=== PATIENT | male | born 1990 | race Caucasian/White ===

== ENCOUNTER 2017-03-29 02:03 | Emergency (ER) | payer OTHER ==
[~2017-03-29] VITALS: Ht 185.4 cm; Wt 68.7 kg
[2017-03-29 02:12] VITALS: TEMP 37; Ht 185.4 cm; Wt 68.7 kg
[2017-03-29] MEDS ORDERED: IBUPROFEN 800 MG TAB PO STA (02:23)
--- NOTE | 2017-03-29 02:30 | EMERGENCY ROOM VISIT NOTE ---
History Report prepared by Lioribzulma: Bossman Gore Under the Supervision of: Dr. Sea Nails D.O. First contact with patient: 02:15 Chief Complaint: KNEEPAIN Stated Complaint: PAIN IN RIGHT KNEE CAP-CAN BARELY WALK History of Present Illness The patient is a 27 year old male who presents to the Emergency Room with complaints of severe right knee pain starting about 9 hours ago and worsening about 2 hours ago. The patient was playing basketball. He went up to get a rebound when his right leg bent inward and his right knee hit the pavement. He heard a pop when the knee hit the floor. He has been applying ice with some relief. He has worsening pain with movement. He describes the pain to be radiating up to the buttocks and down his lower leg. The patient does not have any medical problems. Source of History: patient Onset: about 9 hours ago Position: knee (right) Symptom Intensity: severe Timing: worsening Modifying Factors (Worsening): movement Modifying Factors (Relieving): ice (with some relief) Review of Systems See HPI for pertinent positives and negatives. A total of six systems were reviewed and were otherwise negative. Past Medical & Surgical Medical Problems: (1) Bronchitis (2) Bronchitis (3) Fracture of fifth metacarpal bone (4) Fracture of fifth metacarpal bone of right hand (5) Fracture of fourth metacarpal bone of right hand Family History Patient reports no known family medical history. Social History Smoking Status: Former Smoker Alcohol Use: occasionally Marital Status: Housing Status: lives with family Occupation Status: employed Current/Historical Medications No Active Prescriptions or Reported Meds Allergies Coded Allergies: No Known Allergies (Unverified , 03/29/17) Physical Exam Vital Signs Date Time Temp Pulse Resp B/P Pulse Ox O2 Delivery O2 Flow Rate FiO2 03/29/17 02:12 37.0 78 16 109/63 98 Room Air Physical Exam GENERAL: Awake, alert, well-appearing, in no distress HENT: Normocephalic, atraumatic. Oropharynx unremarkable. EYES: Normal conjunctiva. Sclera non-icteric. NECK: Supple. No nuchal rigidity. FROM. No JVD. RESPIRATORY: Clear to auscultation. CARDIAC: Regular rate, normal rhythm. Extremities warm and well perfused. Pulses equal. ABDOMEN: Soft, non-distended. No tenderness to palpation. No rebound or guarding. No masses. RECTAL: Deferred. MUSCULOSKELETAL: Chest examination reveals no tenderness. The back is symmetrical on inspection without obvious abnormality. There is no CVA tenderness to palpation. No joint edema. LOWER EXTREMITIES: Calves are equal size bilaterally and non-tender. No edema. No discoloration. Right lower extremity no tenderness of the right hip, no tenderness to the medial aspect of the right knee, patella tendon is nontender, patella is nontender, quadriceps tendon is intact, some valgus laxity, negative anterior drawer, patient is neurovascularly intact distally. NEURO: Normal sensorium. No sensory or motor deficits noted. SKIN: No rash or jaundice noted. Medical Decision & Procedures ER Provider Diagnostic Interpretation: X-ray: Per my interpretation: RIGHT KNEE X-RAY Right knee is negative for fracture or dislocation. Medications Administered Medications (Trade) Dose Ordered Sig/Gregg Route Start Time Stop Time Status Last Admin Dose Admin Ibuprofen (Motrin Tab) 800 mg NOW STAT PO 03/29/17 02:23 03/29/17 02:24 DC 03/29/17 02:23 800 MG ED Course 0215: The patient was evaluated in room A10. A complete history and physical exam was performed. 0223: Motrin Tab 800 mg PO 0255: I reevaluated the patient. Discussed results and discharge instructions: He verbalized understanding and agreement. The patient is ready for discharge. Medical Decision Differential diagnosis includes but is not limited to sprain, strain, contusion , fracture, ligament derangement. Will treat for knee sprain Impression Primary Impression: Sprain of knee Scribe Attestation The scribe's documentation has been prepared under my direction and personally reviewed by me in its entirety. I confirm that the note above accurately reflects all work, treatment, procedures, and medical decision making performed by me. Departure Information Dispostion Home / Self-Care Prescriptions Ibuprofen (Motrin) 800 Mg Tab 800 MG PO Q8H Y for Pain for 5 Days, #15 TAB Prov: Sea Nails, DO 03/29/17 Ibuprofen (Motrin) 800 Mg Tab 800 MG PO Q8H Y for Pain for 5 Days, TAB Prov: Sea Nails, DO 03/29/17 Referrals No Doctor, Assigned (PCP) Forms HOME CARE DOCUMENTATION FORM, IMPORTANT VISIT INFORMATION Patient Instructions ED Sprain Knee Collateral Ligaments, My [facility] Problem Qualifiers Primary Impression: Sprain of knee Encounter type: initial encounter Involved ligament of knee: medial collateral ligament Laterality: right Qualified Codes: S83.411A - Sprain of medial collateral ligament of right knee, initial encounter
[2017-03-29] MEDS ORDERED: IBUP-1428 PO (03:14)
[2017-03-29 03:37] VITALS: BP 128/84; PULSE 84; O2SAT 98
--- NOTE | 2017-03-29 07:01 | DIAGNOSTIC IMAGING REPORT ---
RIGHT KNEE 1 OR 2 VIEWS ROUTINE CLINICAL HISTORY: pain Right pain COMPARISON: None. DISCUSSION: The bones and joint spaces appear intact. There is no evidence of fracture, dislocation or bony disease. There is no evidence for soft tissue swelling. IMPRESSION: Negative study. Electronically signed by: Steven Anderson M.D. 03/29/2017 6:59 AM Dictated Date/Time: 03/29/2017 6:59 AM
[2017-04-14] MEDS ORDERED: IBUP1CAP9 PO (13:33)
== END 2017-03-29 03:39 | disposition home or self-care (01) ==
LOC: C.EDB 02:05 → C.EDA 03:39
DX: S83.411A Sprain of medial collateral ligament of right knee, initial encounter (principal); Y93.67 Activity, basketball; W19.XXXA Unspecified fall, initial encounter; Z87.891 Personal history of nicotine dependence

== ENCOUNTER → 2017-04-05 | Outpatient (CLI) | payer OTHER ==
[~2017-04-05] MED LIST: IBUP1CAP9 PO
--- NOTE | 2017-04-05 21:22 | DIAGNOSTIC IMAGING REPORT ---
RIGHT KNEE MRI HISTORY: RIGHT KNEE PAIN Right COMPARISON STUDY: Right knee 03/29/2017. TECHNIQUE: Multiplanar multisequence MRI of the right knee was performed according to standard department protocol without the use of contrast. FINDINGS: Menisci: The medial meniscus is intact. There is a truncated appearance to the posterior horn and posterior root of the lateral meniscus. Best seen on coronal images 19 through 24 there is an abnormal hypointense structure along the posterior articular surface of the lateral femoral condyle. This appears to attach to the posterior root of the lateral meniscus and likely represents a flipped/torn fragment of the meniscus. This measures approximately 2.2 cm in length. Ligaments: Full-thickness ACL tear. The PCL and LCL are intact. There is edema surrounding the MCL. The majority of fibers are intact. However, there appear to be a few torn fibers within the MCL posteriorly. This consistent with a partial tear. Extensor mechanism: The quadriceps tendon and patellar ligament are intact. Articular cartilage and bone: Patchy areas of marrow edema seen within the bilateral femoral condyles and bilateral tibial plateaus consistent with bone contusions. No fracture or dislocation. Small full-thickness cartilage fissure seen within the medial patellar facet. There is also a small focal area of signal abnormality within the cartilage of the lateral tibial plateau. This is consistent with an additional site of chondromalacia. Joint effusion: Moderate. Soft tissues: Mild soft tissue edema surrounding the knee and extending into the popliteal fossa. IMPRESSION: 1. Full-thickness ACL tear. 2. There appears to be a torn and flipped fragment involving the posterior horn and posterior root of the lateral meniscus as described above. 3. Low-grade partial MCL tear. 4. Bone contusions as described above. No definite fracture. 5. Moderate joint effusion. 6. Focal areas of chondromalacia involving the medial patellar facet and lateral plateau. Electronically signed by: Shorty Emerson M.D. 04/05/2017 9:21 PM Dictated Date/Time: 04/05/2017 9:10 PM
== END | disposition home or self-care (01) ==
LOC: C.MRI 20:01
PROVIDERS: ATTEND Family Medicine
DX: S83.511A Sprain of anterior cruciate ligament of right knee, initial encounter (principal); X58.XXXA Exposure to other specified factors, initial encounter; M22.41 Chondromalacia patellae, right knee

== ENCOUNTER → 2017-05-03 | Day surgery (SDC) | payer OTHER ==
[2017-04-14 13:33] VITALS: Ht 185.4 cm; Wt 72.7 kg
[~2017-05-03] VITALS: Ht 185.4 cm; Wt 72.7 kg
[~2017-05-03] MED LIST changes: +ATROPINE SULFATE 0.1 MG/ML 5ML SYR IV PRN; +BUPIVACAINE 0.5 % 5 MG/1 ML MPF 30ML VIAL ONE; +BUPIVACAINE/EPINEPHRINE 0.5% MPF 1:200,000 30 ML VIAL ONE; +CEFAZOLIN 1000MG/55 ML D5W IV SCH; +DEXAMETHASONE SOD INJ 4 MG/ML VIAL ONE; +EpHEDrine SULFATE INJ 50 MG/ML AMP IV PRN; +EpINEphrine HCL INJ 1 MG/ML 5ML SYRINGE ONE; +FENTANYL CITRATE INJ 50 MCG/1 ML 2 ML VIAL ONE; +HYDROmorphone INJ 1 MG/ML SYR IV PRN; +LACTATED RINGER'S 1000ML 1,000 ML IV SCH; +LIDOCAINE HCL 2% 2 ML VIAL (20MG/ML) ONE; +LIDOCAINE/EPINEPHRINE 1% INJ 50 ML VIAL ONE; +MIDAZOLAM HCL 1 MG/ML 2ML VIAL ONE; +MoRPHine SULFATE 2 MG/ML CARP IV PRN; +MoRPHine SULFATE 4 MG/ML 1 ML CARP\\VIAL IV PRN; +ONDANSETRON INJ 2 MG/ML 2 ML VIAL IV PRN; +ONDANSETRON INJ 2 MG/ML 2 ML VIAL ONE; +OXYCODONE/ACETAMINOPHEN 5-325 TAB PO PRN; +PROMETHAZINE HCL INJ 6.25 MG in SODIUM CHLORIDE 0.9% 50ML 50 ML IV PRN; +PROPOFOL IV EMULSION 10 MG/ML 20 ML VIAL IV ONE
--- NOTE | 2017-05-03 08:39 | History & Physical Bridge - SC ---
H&P Re-Evaluation Bridge Note: I have examined the patient, reviewed the History & Physical and in the interval since the performance of the History & Physical I have noted the following changes of clinical significance: No changes noted
--- NOTE | 2017-05-03 14:19 | [facility] Post Operative Brief Note ---
Immediate Operative Summary Operative Date May 03, 2017. Pre-Operative Diagnosis Right knee Anterior cruciate ligament tear, lateral meniscus tear Post-Operative Diagnosis same Procedure(s) Performed 1) Right Knee Arthroscopic Anterior Cruciate Ligament Reconstruction With Hamstring Autograft. 2) Partial lateral menisectomy. 3) Exam Under Anesthesia. Surgeon Dr Vicente Research Analyst Surgeon(s) Dr Codie Mejia Estimated Blood Loss 15 ML Findings As above. Fluids (cc crystalloids) 1200 Specimens 0 Drains n/a Anesthesia LMA + Femoral Nerve block Complication(s) None Disposition Recovery Room / PACU (Stable)
--- NOTE | 2017-05-03 14:20 | [facility] Operative Report ---
Operative Report Operative Date May 03, 2017. Pre-Operative Diagnosis Right knee Anterior cruciate ligament tear, lateral meniscus tear Post-Operative Diagnosis same Procedure(s) Performed 1) Right Knee Arthroscopic Anterior Cruciate Ligament Reconstruction With Hamstring Autograft. 2) Partial lateral menisectomy. 3) Exam Under Anesthesia. Surgeon Dr Vicente Silo Filler Surgeon(s) Dr Codie Mejia & Varun Hernandez PA-C Estimated Blood Loss 15 ML Findings Examination Under Anesthesia: Range of motion was 0-130 degrees. Ligamentous examination exhibited: Anayeli testing with 6 mm of anterior translation and soft endpoint, and a 1+ pivot glide. Stable: posterior drawer, varus and valgus stress testing at zero and 30. ARTHROSCOPIC FINDINGS: 1) PATELLOFEMORAL JOINT: Articular surface of the patella and trochlea were intact. 2) GUTTERS: There were no loose bodies in either gutter. 3) MEDIAL COMPARTMENT: Articular surface of the femur and tibia were normal. The medial meniscus was intact. 4) ACL/PCL: There was an empty lateral wall sign. There was obvious disruption of both bundles of the ACL from its femoral attachment. The PCL was visualized and probed to be intact. 5) LATERAL COMPARTMENT: The lateral compartment was then entered in a figure-of- four position. The femoral articular cartilage was intact. The tibial cartilage showed some Outerbridge type I changes. The lateral meniscus had a displaced or it be tear from the apex to the posterior horn of the lateral meniscus. Fluids (cc crystalloids) 1200 Specimens 0 Drains n/a Anesthesia LMA + femoral Nerve Block Complication(s) None Disposition Recovery Room / PACU (Stable) Implants 1. Femoral Fixation with ACL Tightrope RT (Arthrex). 2. Tibial Fixation with ABS Tightrope with ABS button (Arthrex). Indications This is a 27-year-old male who tore their right ACL playing basketball. I recommended that their right knee anterior cruciate ligament reconstruction be performed to allow the patient to return to cutting/pivoting activities. The patient understands the rehabilitation process as well as the risks of surgery, which include bleeding, infection, re-operation, damage to nerves and arteries, continued knee pain, or regression of arthritis, arthrofibrosis (knee stiffness) , failure of the graft, failure of the hardware, and the potential that the patient may not return to their previous level of activity, and deep vein thrombosis. The patient understands all of these instructions and explanations , all of their questions have been satisfactorily addressed and the patient has elected to proceed. Informed consent was signed. Description of Procedure The patient was taken to the Operating Room and placed in the supine position after Adductor nerve block and general anesthetic was administered. The surgeon initials and a multidisciplinary time-out were used to identify the right leg as the correct operative limb. Prior to the incision, 1 gram of intravenous Ancef was given. The right leg was then prepped and draped in a standard sterile fashion. The anterolateral, anteromedial, and superolateral portals were injected with the 50:50 mixture of 1% Lidocaine plain and 0.5% Bupivacaine with epinephrine, for a total of 10cc, in the standard fashion. An anterolateral arthroscopic portal was established with 11-blade. Next, the arthroscope was introduced into the knee. The anteromedial portal was established under direct visualization using a spinal needle followed by an 11 blade in the standard fashion. The above findings were observed during the diagnostic arthroscopy. Graft [place]: The oblique planed incision was injected with 6 cc of the above noted 50:50 mixture. With the knee bent 40-50 degrees a #10-blade was used to make sharp dissection approximately 5 cm. Blunt dissection was used to identify the Sartorious fascia. This was incised along its superior border and T distally. The Gracilis and Semitendinosus were identified and tagged. All adhesions were bluntly and sharply dissected off the Semitendinosus tendon. The Semitendinosus was sharply dissected off the bone distally and a Krackow stitch was placed with a #2 FiberWire. The tendon was delivered into the wound and the remaining adhesions were removed. A closed end graft harvester was used to then harvest the Semitendinosus tendon in the standard fashion. The graft was placed on the back table for preparation. All excess muscle was removed. The ends of the tendons were whipped stitched with 3-0 Vicryl and passed through the ABS and RT Tightropes, where the ends were then secured with a FiberLoop. 0 Vicryl was used to yolis the 20mm from either end of the tight ropes and the knot docked in the standard fashion. It was quadrupled over and found to fit an 10.5 mm sizer, for the femoral side and a 10.5 mm sizer on the tibial side. The graft length was 69 mm. The graft was tensioned on the back table and 15 PSI and covered with a moist sponge until later use. After completing the diagnostic arthroscopy, the lateral meniscus tear was debrided back to a stable margin with hand punches and a mechanical shaver. The right knee was then flexed to 90 degrees and a bump was placed underneath the posterior thigh. With the knee flexed in a 90-degree position, my attention was then focused on excising the remnants of the anterior cruciate ligament with a 5.0 mm shaver and Coolcut. A small notchplasty was performed to visualize the back wall. The arthroscope was switch to the anteromedial portal and the Flipcutter aiming guide was placed at the 10 Oclock position with 7 mm from the over the top position, with 110 degrees. The lateral aspect of the femur was marked and a small 1 cm incision was made to place the aiming guide down to bone. Then the 10.5 mm Flipcutter was introduced into the knee through the lateral femoral condyle for proper femoral tunnel placement. The Flipcutter was flipped and the tunnel was reamed for a total tunnel length of 28 mm. There was 1 mm thick back wall. A Fiberstick suture was then used and shuttled in through the femoral tunnel and then out the anterolateral portal. The Tibial drill guide was then brought into the knee and set on 65 degrees. A 10.5 mm Flipcutter was then introduced from the anteromedial tibia into the intra-articular position in the center of the ACL footprint even with the anterior horn of lateral meniscus and 8 mm anterior to the PCL. The tunnel was created to a depth of 32 mm. A Tigerstick was introduced through the tibial tunnel and retrieved through the anteromedial portal, along with the Tigerstick to pass the graft, insuring that there was no soft tissue bridge. The graft was then introduced intra-articularly through the anteromedial portal. The graft was then seated in an anatomic position along the femur. Fixation was accomplished on the femoral side with an ACL Tightrope RT. The graft was then introduced into the tibial tunnel and an ABS button was placed. Next, the graft was taken into full extension. There was no impingement. The graft entered the knee approximately 1 mm at 10 degrees of flexion. The arthroscopic instruments were then removed. The graft was then cycled and fixed to the knee in 0 degrees flexion with ABS Tightrope and button on the tibial side in the standard fashion. Anayeli and pivot shift were then tested and were negative. The knee had full range of motion. The wounds were then copiously irrigated. The portal sites were closed with 3- 0 Prolene. The Sartorius fascia was closed with 0 Vicryl in a running fashion. The wound was copious irrigated. The subcutaneous tissue was closed with 3-0 Vicryl. The skin was closed with a running subcuticular using a 3-0 Prolene in a standard running fashion. The wound was dressed with Steri-Strips, Xeroform gauze, sterile gauze, ABDs, sterile Webril, and a foot to thigh Yordan bandage. An Iceman device and T-ROM hinged knee brace were applied. The patient was then transferred to the Recovery Room in stable condition. Post-op Instructions: The patient will be weight bearing as tolerated with his brace locked in extension for the next 2 weeks. The patient may remove the operative dressing on Post-Op Day #2 and apply Band-Aids to the portal wounds and cover their anterior incision with gauze as needed. The patient may shower in 72 hours and is to wear the PEBBLES for 2 weeks on their operative limb. The patient is to use the pain medicine as needed and take the ASA for 3 weeks. The patient is to start PT post-operative day 2. The patient was also given a handout for home quad strengthening and seated self-assisted ROM exercises, which they may begin tomorrow. The patient is to follow up with me in 10-15 days. I attest to the content of the Intraoperative Record and any orders documented therein. Any exceptions are noted below.
--- NOTE | 2017-05-03 14:23 | Discharge Instructions-SurgCtr ---
Discharge Instructions Date of Service May 03, 2017. Visit Reason for Visit: Right Knee Acl Tear, Possible Meniscus Tear Discharge Discharge Diagnosis / Problem: Status post Right ACL reconstruction Discharge Goals Goal(s): Decrease discomfort, Improve function, Increase independence Activity Recommendations Activity Limitations: per Instructions/Follow-up section May Resume Sexual Activity: when tolerated Shower/Bathe: may shower/bathe in 3 days Driving or Machine Use: Not while on Narcotics & until regain Full Range of Motion, walking without a limp Anesthesia . Post Anesthesia Instructions: If you have had General Anesthesia or IV Sedation: * Do not drive today. * Resume driving when surgeon permits. * Do not make important decisions or sign legal documents today. * Call surgeon for: 1. Temperature elevations greater than 101 degrees F. 2. Uncontrollable pain. 3. Excessive bleeding. 4. Persistent nausea and vomiting. 5. Medication intolerance (nausea, vomiting or rash). * For nausea and vomiting use only clear liquids such as: tea, soda, bouillon until nausea subsides, then gradually increase diet as tolerated. * If you have any concerns or questions, call your surgeon's office. If physician is unavailable and it is an emergency, call 911 or go to the nearest emergency room. . Instructions / Follow-Up Instructions / Follow-Up Dr. Vicente in 10-15 days. PT in 2-3 days. Diet Recommendations Home Diet: resume previous diet Procedures Procedures Performed: 1) Right Knee Arthroscopic Anterior Cruciate Ligament Reconstruction With Hamstring Autograft. 2) Partial lateral menisectomy. 3) Exam Under Anesthesia. Pending Studies Studies pending at discharge: no Medical Emergencies . Who to Call and When: Medical Emergencies: If at any time you feel your situation is an emergency, please call 911 immediately. . Non-Emergent Contact Non-Emergency issues call your: Surgeon Call Non-Emergent contact if: temperature is above 101.5, your pain is not controlled, wound has increased drainage, wound has increased redness . . "Provider Documentation" section prepared by Jairon Vicente. .
--- NOTE | 2017-05-03 14:35 | [facility] Operative Report ---
Operative Report Operative Date May 03, 2017. Pre-Operative Diagnosis Right knee Anterior cruciate ligament tear, lateral meniscus tear Post-Operative Diagnosis same Procedure(s) Performed 1) Right Knee Arthroscopic Anterior Cruciate Ligament Reconstruction With Hamstring Autograft. 2) Partial lateral menisectomy. 3) Exam Under Anesthesia. Surgeon Dr Vicente Rod Buster Surgeon(s) Dr Codie Mejia & Varun Hernandez PA-C Estimated Blood Loss 15 ML Findings same Fluids (cc crystalloids) 1200 Specimens 0 Drains none Anesthesia general, block Complication(s) None Disposition Recovery Room / PACU Implants see Dr. Vicente's op note for further detail Indications sustained injury to right knee, MRI obtained, surgery recommended, consents signed. Description of Procedure taken to the OR, prepped and draped, I was present the entire case, completion of the ACL graft was performed by myself, Dr. Mackay, fellow, was required to leave the case prior to finalization, please see Dr. Vicente's op note for further detail I attest to the content of the Intraoperative Record and any orders documented therein. Any exceptions are noted below.
[2017-05-03] MEDS: FENTANYL CITRATE INJ 50 MCG/1 ML 2 ML VIAL IV PRN ×2 (14:54→15:04)
[2017-05-03 15:17] VITALS: TEMP 37
--- NOTE | 2017-05-03 15:41 | Anesthesia Progress Nt - [facility] ---
Anesthesia Post Op Note Date & Time May 03, 2017 at 15:41 Vital Signs Pain Intensity: 8.0 Vital Signs Past 12 Hours Date Time Temp Pulse Resp B/P (MAP) Pulse Ox O2 Delivery O2 Flow Rate FiO2 05/03/17 15:17 37.0 86 16 122/82 (95) 96 Room Air 05/03/17 15:12 37.0 73 16 145/79 99 Room Air 05/03/17 15:11 88 15 05/03/17 15:11 86 15 100 05/03/17 15:10 145/79 05/03/17 15:06 81 9 05/03/17 15:06 79 9 95 05/03/17 15:05 116/81 05/03/17 15:02 84 12 05/03/17 15:02 84 12 98 05/03/17 15:00 129/78 05/03/17 14:57 85 15 05/03/17 14:57 88 15 98 05/03/17 14:56 133/80 05/03/17 14:52 95 11 100 05/03/17 14:52 100 11 05/03/17 14:50 141/85 05/03/17 14:47 84 15 100 05/03/17 14:47 85 15 05/03/17 14:46 129/77 05/03/17 14:42 91 13 99 05/03/17 14:42 91 13 05/03/17 14:41 108/80 05/03/17 14:39 149/72 05/03/17 14:37 118 05/03/17 14:37 37.0 102 20 149/72 99 Diffusion Mask 10 05/03/17 14:37 118 100 05/03/17 11:06 80 21 100 05/03/17 11:06 83 05/03/17 11:05 111/60 05/03/17 11:01 65 12 111/60 100 05/03/17 11:01 63 05/03/17 10:56 63 21 122/58 100 05/03/17 10:56 62 05/03/17 10:51 73 40 116/71 100 05/03/17 10:51 72 05/03/17 10:46 73 21 111/66 100 05/03/17 10:46 71 05/03/17 10:41 63 05/03/17 10:41 61 14 122/60 100 05/03/17 10:37 110/62 05/03/17 10:36 74 05/03/17 10:36 72 31 100 05/03/17 10:31 65 05/03/17 10:31 68 16 118/66 100 05/03/17 10:29 124/75 05/03/17 10:28 80 20 124/75 (91) 100 Mask 6 05/03/17 10:26 0 05/03/17 10:21 0 05/03/17 10:16 0 05/03/17 10:11 0 05/03/17 10:06 0 05/03/17 10:01 0 05/03/17 09:56 0 05/03/17 09:51 0 05/03/17 09:46 0 05/03/17 09:41 0 05/03/17 09:36 0 05/03/17 09:31 0 05/03/17 09:26 0 05/03/17 08:38 36.6 71 20 115/70 (85) 99 Room Air Notes Mental Status: alert / awake / arousable, participated in evaluation Pt Amnestic to Procedure: Yes Nausea / Vomiting: adequately controlled Pain: adequately controlled Airway Patency, RR, SpO2: stable & adequate BP & HR: stable & adequate Hydration State: stable & adequate Anesthetic Complications: no major complications apparent Block working well in pacu
[2017-05-03 15:55] VITALS: BP 118/71; PULSE 68; O2SAT 98
== END | disposition home or self-care (01) ==
LOC: X.SURG 08:19
PROVIDERS: ATTEND Orthopaedic Surgery Sports Medicine
DX: S83.511A Sprain of anterior cruciate ligament of right knee, initial encounter (principal); S83.281A Other tear of lateral meniscus, current injury, right knee, initial encounter; X58.XXXA Exposure to other specified factors, initial encounter; Y93.67 Activity, basketball; Z98.890 Other specified postprocedural states; F17.200 Nicotine dependence, unspecified, uncomplicated; Z68.21 Body mass index [BMI] 21.0-21.9, adult

== ENCOUNTER → 2017-05-18 | Outpatient (CLI) | payer OTHER ==
[~2017-05-18] MED LIST changes: -ATROPINE SULFATE 0.1 MG/ML 5ML SYR IV PRN; -BUPIVACAINE 0.5 % 5 MG/1 ML MPF 30ML VIAL ONE; -BUPIVACAINE/EPINEPHRINE 0.5% MPF 1:200,000 30 ML VIAL ONE; -CEFAZOLIN 1000MG/55 ML D5W IV SCH; -DEXAMETHASONE SOD INJ 4 MG/ML VIAL ONE; -EpHEDrine SULFATE INJ 50 MG/ML AMP IV PRN; -EpINEphrine HCL INJ 1 MG/ML 5ML SYRINGE ONE; -FENTANYL CITRATE INJ 50 MCG/1 ML 2 ML VIAL ONE; -HYDROmorphone INJ 1 MG/ML SYR IV PRN; -LACTATED RINGER'S 1000ML 1,000 ML IV SCH; -LIDOCAINE HCL 2% 2 ML VIAL (20MG/ML) ONE; -LIDOCAINE/EPINEPHRINE 1% INJ 50 ML VIAL ONE; -MIDAZOLAM HCL 1 MG/ML 2ML VIAL ONE; -MoRPHine SULFATE 2 MG/ML CARP IV PRN; -MoRPHine SULFATE 4 MG/ML 1 ML CARP\\VIAL IV PRN; -ONDANSETRON INJ 2 MG/ML 2 ML VIAL IV PRN; -ONDANSETRON INJ 2 MG/ML 2 ML VIAL ONE; -OXYCODONE/ACETAMINOPHEN 5-325 TAB PO PRN; -PROMETHAZINE HCL INJ 6.25 MG in SODIUM CHLORIDE 0.9% 50ML 50 ML IV PRN; -PROPOFOL IV EMULSION 10 MG/ML 20 ML VIAL IV ONE
--- NOTE | 2017-05-18 11:48 | DIAGNOSTIC IMAGING REPORT ---
RIGHT KNEE 1 OR 2 VIEWS CLINICAL HISTORY: Right ACL tear status post surgery COMPARISON STUDY: 03/29/2017 FINDINGS: No acute fractures or dislocations are visualized. There are postsurgical changes of an ACL repair. There is a moderate joint effusion. IMPRESSION: 1. No acute fractures 2. Interval ACL repair 3. Moderate joint effusion Electronically signed by: Rey Estrella M.D. 05/18/2017 11:47 AM Dictated Date/Time: 05/18/2017 11:46 AM
== END | disposition home or self-care (01) ==
LOC: C.RDSM 11:41
PROVIDERS: ATTEND Physician Assistant
DX: S83.519A Sprain of anterior cruciate ligament of unspecified knee, initial encounter (principal); X58.XXXA Exposure to other specified factors, initial encounter; Z98.890 Other specified postprocedural states